=== PATIENT | female | born 1985 | race Caucasian/White ===

== ENCOUNTER 2024-07-15 08:03 | Inpatient (IN) ==
[2024-07-15] MEDS ORDERED: Lactated Ringers 1000 ml BAG 1,000 ML IV ONE (08:56)
[2024-07-15] MEDS: Buffered Lidocaine 1% SYRIN 1 ml INTRADERM ONE (09:25)
[2024-07-15] MEDS: miSOPROStol 100 mcg TAB VAGINAL ONE ×2 (09:37→14:37)
[2024-07-15 11:53] LABS: Urine Benzodiazepine Screen None Detected (None Detect); Urine Cannabinoids Screen None Detected (None Detect); Urine Opiates Screen None Detected (None Detect)
[2024-07-15] MEDS: Dinoprostone 10 MG VAG.SUPP VAGINAL ONE (19:34)
[2024-07-16] MEDS: Lactated Ringers 1000 ml BAG 1,000 ML IV SCH (13:09)
[2024-07-16] MEDS: Oxytocin in LR 20,000 MILLI.UNIT/1,000 ML BAG IV SCH (13:09)
[2024-07-16 13:15] LABS: Hematocrit 37.6 % (35-45); Hemoglobin 12.5 g/dL (11.5-14.3); Mean Corpuscular Hemoglobin 30.8 pg (27-33); Mean Corpuscular Hgb Conc 33.3 g/dL (31-36); Mean Corpuscular Volume 92.4 fL (80-97); Platelet Count 265 10^3/uL (150-450); Red Blood Count 4.07 10^6/uL (3.63-4.92); White Blood Count 16.9 10^3/uL (3.8-11.8)
[2024-07-16 13:16] LABS: ABS Basophils 0.1 10^3/uL (0.0-0.1); ABS Eosinophils 0.4 10^3/uL (0.0-0.5); ABS Lymphocytes 1.5 10^3/uL (1.0-4.8); ABS Monocytes 0.7 10^3/uL (0.0-0.9); ABS Neutrophils 14.2 10^3/uL (1.5-7.6); ABS Nucleated RBC 0.01 10^3/ul; Eosinophil % 2.3 %; Lymphocyte % 8.9 %; Mean Platelet Volume 8.2 fL (7.5-11.2)
[2024-07-16] MEDS: OBEPIDURAL (200 ML) 200 ML EPIDURAL ONE (16:28)
[2024-07-16] MEDS ORDERED: Sodium Citrate/Citric Acid LIQ 15 ML UDC PO PRN (16:34)
[2024-07-16 17:29] LABS: Urine Appearance Clear; Urine Bilirubin Negative (Negative); Urine Blood Negative (Negative); Urine Color Yellow; Urine Glucose Negative (Negative); Urine Ketones 2+ (Negative); Urine Nitrite Negative (Negative); Urine Protein Trace (Negative); Urine Specific Gravity 1.024 (1.002-1.030); Urine Urobilinogen Negative (Negative)
[2024-07-16 17:39] LABS: Urine Bacteria Absent /HPF (Absent); Urine Red Blood Cell Trace(0-2/hpf) /HPF (0-Trace); Urine Squamous Epithelial Cell Present /HPF (Absent); Urine White Blood Cell Trace(0-5/hpf) /HPF (0-Trace)
[2024-07-16] MEDS: Phenylephrine 40 mcg/mL 10mL (400mcg) SYRINGE IV PUSH PRN ×2 (18:10→18:12)
[2024-07-16] MEDS: Lidocaine 1% VIAL 10 MG/ML 30 ML VIAL INJ PRN (20:30)
[2024-07-16] MEDS ORDERED: Glycerin ADULT 2.4 gm SUPP PR PRN (21:12)
[2024-07-16] MEDS ORDERED: Lactated Ringers 1000 ml BAG 1,000 ML IV SCH (22:00)
[2024-07-16] MEDS: Dibucaine 1% OINT 28.35 GM TUBE PR PRN (22:17)
[2024-07-16] MEDS: Witch Hazel PAD JAR TOPICAL PRN (22:17)
[2024-07-17] MEDS: Oxytocin in LR 20,000 MILLI.UNIT/1,000 ML BAG IV SCH (00:10)
[2024-07-17] MEDS: Lidocaine 1.5% EPI 1:200,000 30 ML SDV ONE (00:46)
[2024-07-17] MEDS: Lactated Ringers 1000 ml BAG 1,000 ML IV SCH (00:46)
[2024-07-17] MEDS: OBEPIDURAL (200 ML) 200 ML EPIDURAL SCH (00:46)
[2024-07-17] MEDS: Lactated Ringers 1000 ml BAG 1,000 ML IV ONE (00:46)
[2024-07-17] MEDS: Mineral Oil Sterile, TOPICAL 25 ML BTL ONE (00:47)
[2024-07-17] MEDS: Mineral Oil Sterile, TOPICAL 25 ML BTL TOPICAL ONE (06:23)
[2024-07-17 08:48] LABS: Hematocrit 29.6 % (35-45); Hemoglobin 10.3 g/dL (11.5-14.3); Mean Corpuscular Hemoglobin 32.3 pg (27-33); Mean Corpuscular Hgb Conc 34.7 g/dL (31-36); Mean Corpuscular Volume 93.1 fL (80-97); Mean Platelet Volume 8.6 fL (7.5-11.2); Platelet Count 207 10^3/uL (150-450); Red Blood Count 3.18 10^6/uL (3.63-4.92); Red Cell Distribution Width 13.2 % (12-17); White Blood Count 16.2 10^3/uL (3.8-11.8)
[2024-07-17 09:51] LABS: ABS Basophils 0.1 10^3/uL (0.0-0.1); ABS Lymphocytes 2.7 10^3/uL (1.0-4.8); ABS Monocytes 0.8 10^3/uL (0.0-0.9); ABS Neutrophils 11.6 10^3/uL (1.5-7.6); ABS Nucleated RBC 0.01 10^3/ul; Eosinophil % 6.4 %; Lymphocyte % 16.6 %
[2024-07-18 08:46] VITALS: BP 120/64
== END 2024-07-18 16:30 | disposition home or self-care (01) | DRG 805 ==
LOC: MCHOBOUT 08:03 → MCHOB 08:16
PROVIDERS: ADMIT Midwife